=== PATIENT | male | born 1935 | race Caucasian/White ===

== ENCOUNTER 2017-12-29 11:27 | Emergency (ER) | payer OTHER ==
[~2017-12-29] VITALS: Ht 190.5 cm; Wt 80.9 kg
[2017-12-29 11:30] VITALS: BP 138/64
[2017-12-29] MEDS ORDERED: ATEN25TA PO (12:22)
[2017-12-29] MEDS ORDERED: HYDR12.53 PO (12:22)
[2017-12-29] MEDS ORDERED: SIMV10TA3 PO (12:22)
== END 2017-12-29 13:10 | disposition home or self-care (01) ==
LOC: ED 13:04
DX: L02.415 Cutaneous abscess of right lower limb (principal); E78.00 Pure hypercholesterolemia, unspecified; I10 Essential (primary) hypertension; Z86.73 Personal history of transient ischemic attack (TIA), and cerebral infarction without residual deficits
CPT/HCPCS: 10060; 99283